=== PATIENT | female | born 1990 | race Two or more races ===

== ENCOUNTER 2024-03-01 11:32 | Emergency (ER) | payer MEDICAID, SELFPAY ==
[~2024-03-01] VITALS: Ht 152.4 cm; Wt 97.6 kg
[2024-03-01 11:38] VITALS: BP 172/98; TEMP 97.7; O2SAT 97
[2024-03-01] MEDS ORDERED: METH-1164 PO ×2 (11:49→14:19)
[2024-03-01] MEDS ORDERED: CYCL5TAB PO (11:49)
[2024-03-01] MEDS ORDERED: NIFE1TAB52 PO (11:49)
[2024-03-01] MEDS ORDERED: METF10004 PO (11:49)
[2024-03-01 13:38] LABS: BASO # 0.1 10^3/uL (0.0-0.2); BASO % 0.6 % (0.0-1.0); EOS # 0.2 10^3/uL (0.0-0.5); EOS % 2.1 % (0.0-3.0); HEMOGLOBIN 13.6 g/dl (12.0-15.5); LYMPH # 2.2 10^3/uL (1.5-5.0); LYMPH % 26.4 % (24.0-44.0); MEAN CORPUSCULAR HEMOGLOBIN 29.5 pg (27.0-33.0); MEAN CORPUSCULAR HGB CONC 32.4 g/dl (32.0-36.5); MEAN CORPUSCULAR VOLUME 91.1 fl (80.0-96.0); MONO # 0.4 10^3/uL (0.0-0.8); MONO % 4.2 % (2.0-8.0); NEUTROPHILS # 5.5 10^3/uL (1.5-8.5); NEUTROPHILS % 66.3 % (36.0-66.0); PLATELET COUNT, AUTOMATED 403 10^3/uL (150-450); RED BLOOD COUNT 4.61 10^6/uL (4.00-5.40); WHITE BLOOD COUNT 8.3 10^3/uL (4.0-10.0)
[2024-03-01 14:02] LABS: LIPASE 24 U/L (12-53)
[2024-03-01 14:06] LABS: ALBUMIN 3.6 G/DL (3.2-5.2); ALKALINE PHOSPHATASE 86 U/L (46-116); ALT/SGPT 19 U/L (7.0-40); AST/SGOT 14 U/L (<34); BILIRUBIN,DIRECT 0.1 MG/DL (<0.4); BILIRUBIN,TOTAL 0.4 MG/DL (0.3-1.2); BLOOD UREA NITROGEN < 5 MG/DL (9-23); CALCIUM LEVEL 9.1 MG/DL (8.5-10.1); CARBON DIOXIDE LEVEL 27 MMOL/L (20-31); CHLORIDE LEVEL 107 MMOL/L (98-107); CREATININE FOR GFR 0.57 MG/DL (0.55-1.30); GLOMERULAR FILTRATION RATE > 60.0 (>60); GLUCOSE, FASTING 104 MG/DL (60-100); HCG, SERUM QUANTITATIVE < 2.6 MIU/ML (<4.2); POTASSIUM SERUM 3.9 MMOL/L (3.5-5.1); SODIUM LEVEL 138 MMOL/L (136-145); TOTAL PROTEIN 6.7 G/DL (5.7-8.2)
== END 2024-03-01 14:30 | disposition home or self-care (01) ==
LOC: EDBD 11:32 → M ED 11:32
DX: M54.50 Low back pain, unspecified (principal); I10 Essential (primary) hypertension; N18.9 Chronic kidney disease, unspecified; Z88.8 Allergy status to other drugs, medicaments and biological substances; Z91.041 Radiographic dye allergy status; Z79.84 Long term (current) use of oral hypoglycemic drugs; Z79.899 Other long term (current) drug therapy

== ENCOUNTER 2024-03-30 15:13 | Emergency (ER) | payer MEDICAID, SELFPAY ==
[~2024-03-30] VITALS: Ht 152.4 cm; Wt 95.8 kg
[~2024-03-30 15:13] MED LIST: CYCL5TAB PO; METF10004 PO; METH-1164 PO; NIFE1TAB52 PO
[2024-03-30] MEDS ORDERED: ACET-683 PO (15:35)
[2024-03-30 16:12] LABS: URINE PREG TEST NEGATIVE (NEGATIVE)
[2024-03-30 17:58] VITALS: BP 108/67; TEMP 97; O2SAT 98
[2024-03-30] MEDS ORDERED: MUPI2OI TOP (19:25)
[2024-03-30] MEDS ORDERED: GUAIDM5UD PO (19:25)
[2024-03-30] MEDS ORDERED: CHLO1.4S7 PO (19:25)
== END 2024-03-30 19:36 | disposition home or self-care (01) ==
LOC: M ED 15:13
DX: J06.9 Acute upper respiratory infection, unspecified (principal); E11.9 Type 2 diabetes mellitus without complications; I10 Essential (primary) hypertension; Z86.73 Personal history of transient ischemic attack (TIA), and cerebral infarction without residual deficits; M54.9 Dorsalgia, unspecified; M32.9 Systemic lupus erythematosus, unspecified; F17.200 Nicotine dependence, unspecified, uncomplicated; Z79.899 Other long term (current) drug therapy; Z88.0 Allergy status to penicillin; Z88.6 Allergy status to analgesic agent; Z88.8 Allergy status to other drugs, medicaments and biological substances; Z91.041 Radiographic dye allergy status; Z91.013 Allergy to seafood; Z91.030 Bee allergy status; Z91.010 Allergy to peanuts

== ENCOUNTER 2024-04-06 00:14 | Emergency (ER) | payer MEDICAID ==
[~2024-04-06] VITALS: Ht 152.4 cm; Wt 95.0 kg
[~2024-04-06 00:14] MED LIST changes: +ACET-683 PO; +CHLO1.4S7 PO; +GUAIDM5UD PO; +MUPI2OI TOP
[2024-04-06 00:15] VITALS: BP 122/85; TEMP 98.5; O2SAT 97
== END 2024-04-06 02:01 | disposition left against medical advice (07) ==
LOC: M ED 00:14
DX: Z53.21 Procedure and treatment not carried out due to patient leaving prior to being seen by health care provider (principal)

== ENCOUNTER 2024-04-16 19:58 | Emergency (ER) | payer MEDICAID ==
[~2024-04-16] VITALS: Ht 157.5 cm; Wt 97.5 kg
[2024-04-16 20:00] VITALS: BP 135/83; TEMP 97.5; O2SAT 97
== END 2024-04-16 20:16 | disposition left against medical advice (07) ==
LOC: M ED 19:58
DX: Z53.21 Procedure and treatment not carried out due to patient leaving prior to being seen by health care provider (principal)

== ENCOUNTER 2024-04-17 23:03 | Emergency (ER) | payer MEDICAID, OTHER, SELFPAY ==
[~2024-04-17] VITALS: Ht 154.9 cm; Wt 97.6 kg
[2024-04-17 23:05] VITALS: BP 138/92; TEMP 97.8; O2SAT 97
[2024-04-18] MEDS ORDERED: DOXY-441 PO (19:52)
== END 2024-04-18 01:18 | disposition left against medical advice (07) ==
LOC: M ED 23:03
DX: Z53.21 Procedure and treatment not carried out due to patient leaving prior to being seen by health care provider (principal)

== ENCOUNTER 2024-04-18 18:14 | Emergency (ER) | payer MEDICAID, SELFPAY ==
[~2024-04-18] VITALS: Ht 152.4 cm; Wt 90.0 kg
[2024-04-18] MEDS ORDERED: DOXY-441 PO (19:52)
[2024-04-18] MEDS: DERMABOND TOPICAL SKIN ADHESIVE TOP ONE (19:56)
[2024-04-18] MEDS: DOXYCYCLINE HYCLATE 100MG TABLET PO ONE (19:57)
[2024-04-18 20:13] VITALS: BP 148/95; TEMP 97.9; O2SAT 96
== END 2024-04-18 21:05 | disposition home or self-care (01) ==
LOC: M ED 18:14
DX: F43.0 Acute stress reaction (principal); S61.213A Laceration without foreign body of left middle finger without damage to nail, initial encounter; E11.9 Type 2 diabetes mellitus without complications; I10 Essential (primary) hypertension; G40.909 Epilepsy, unspecified, not intractable, without status epilepticus; M54.50 Low back pain, unspecified; Z79.84 Long term (current) use of oral hypoglycemic drugs; Z88.0 Allergy status to penicillin; Z88.1 Allergy status to other antibiotic agents; Z88.4 Allergy status to anesthetic agent; Z88.6 Allergy status to analgesic agent; Z88.8 Allergy status to other drugs, medicaments and biological substances; Z91.040 Latex allergy status; Z91.030 Bee allergy status; Z91.041 Radiographic dye allergy status; Z91.013 Allergy to seafood; Z79.1 Long term (current) use of non-steroidal anti-inflammatories (NSAID); Z79.899 Other long term (current) drug therapy

== ENCOUNTER 2024-04-27 22:37 | Emergency (ER) | payer MEDICAID ==
[~2024-04-27] VITALS: Ht 154.9 cm; Wt 96.2 kg
[~2024-04-27 22:37] MED LIST changes: +DOXY-441 PO
[2024-04-27 22:50] VITALS: BP 137/71; TEMP 98; O2SAT 96
[2024-04-28] MEDS ORDERED: MUPI2OI TOP (04:38)
[2024-04-28] MEDS ORDERED: IPRA0.00 NEB (04:38)
[2024-04-28] MEDS ORDERED: VENTAER INH (04:38)
== END 2024-04-28 00:13 | disposition left against medical advice (07) ==
LOC: M ED 22:37
DX: Z53.21 Procedure and treatment not carried out due to patient leaving prior to being seen by health care provider (principal)

== ENCOUNTER 2024-04-28 00:35 | Emergency (ER) | payer MEDICAID ==
[~2024-04-28] VITALS: Ht 154.9 cm; Wt 93.2 kg
[2024-04-28] MEDS ORDERED: IPRA0.00 NEB (04:38)
[2024-04-28] MEDS ORDERED: VENTAER INH (04:38)
[2024-04-28] MEDS ORDERED: MUPI2OI TOP (04:38)
[2024-04-28 04:39] VITALS: BP 127/65; TEMP 97.2; O2SAT 98
== END 2024-04-28 04:52 | disposition home or self-care (01) ==
LOC: M ED 00:35
DX: J06.9 Acute upper respiratory infection, unspecified (principal); J45.901 Unspecified asthma with (acute) exacerbation; M54.9 Dorsalgia, unspecified; F17.200 Nicotine dependence, unspecified, uncomplicated; Z79.899 Other long term (current) drug therapy; Z88.0 Allergy status to penicillin; Z88.8 Allergy status to other drugs, medicaments and biological substances; Z88.4 Allergy status to anesthetic agent; Z91.041 Radiographic dye allergy status; Z91.030 Bee allergy status; Z91.013 Allergy to seafood; Z88.6 Allergy status to analgesic agent; Z91.010 Allergy to peanuts

== ENCOUNTER 2024-05-08 19:26 | Emergency (ER) | payer MEDICAID ==
[~2024-05-08] VITALS: Ht 154.9 cm; Wt 90.0 kg
[~2024-05-08 19:26] MED LIST changes: +IPRA0.00 NEB; +VENTAER INH
[2024-05-08 19:31] VITALS: BP 135/82; TEMP 97.3; O2SAT 99
[2024-05-08 20:36] LABS: URINE PREG TEST NEGATIVE (NEGATIVE)
== END 2024-05-08 23:00 | disposition left against medical advice (07) ==
LOC: M ED 19:26
DX: Z53.21 Procedure and treatment not carried out due to patient leaving prior to being seen by health care provider (principal)

== ENCOUNTER 2024-05-10 14:36 | Emergency (ER) | payer MEDICAID ==
[2024-05-10 14:57] VITALS: BP 134/78; TEMP 98
[2024-05-10 15:51] VITALS: O2SAT 97
== END 2024-05-10 16:37 | disposition left against medical advice (07) ==
LOC: EDBD 14:36 → M ED 14:36
DX: Z53.21 Procedure and treatment not carried out due to patient leaving prior to being seen by health care provider (principal)

== ENCOUNTER 2024-06-03 19:43 | Emergency (ER) | payer MEDICAID, OTHER, SELFPAY ==
[~2024-06-03] VITALS: Ht 154.9 cm; Wt 99.5 kg
[~2024-06-03 19:43] MED LIST changes: -CYCL5TAB PO; +CYCL5TAB4 PO
[2024-06-03 19:46] VITALS: TEMP 99
[2024-06-03 20:39] LABS: BASO % 0.3 % (0.0-1.0); EOS # 0.2 10^3/uL (0.0-0.5); EOS % 2.7 % (0.0-3.0); HEMATOCRIT 42.4 % (36.0-47.0); HEMOGLOBIN 13.6 g/dl (12.0-15.5); LYMPH # 2.7 10^3/uL (1.5-5.0); LYMPH % 29.6 % (24.0-44.0); MEAN CORPUSCULAR HEMOGLOBIN 29.2 pg (27.0-33.0); MEAN CORPUSCULAR HGB CONC 32.1 g/dl (32.0-36.5); MONO # 0.5 10^3/uL (0.0-0.8); MONO % 5.6 % (2.0-8.0); NEUTROPHILS # 5.6 10^3/uL (1.5-8.5); NEUTROPHILS % 61.4 % (36.0-66.0); PLATELET COUNT, AUTOMATED 453 10^3/uL (150-450); RED BLOOD COUNT 4.66 10^6/uL (4.00-5.40); WHITE BLOOD COUNT 9.1 10^3/uL (4.0-10.0)
[2024-06-03 21:01] LABS: LIPASE 32 U/L (12-53)
[2024-06-03 21:03] LABS: ALBUMIN 3.5 G/DL (3.2-5.2); ALKALINE PHOSPHATASE 84 U/L (35-104); ALT/SGPT 18 U/L (7.0-40); AST/SGOT 10 U/L (<34); BILIRUBIN,DIRECT < 0.1 MG/DL (<0.4); BILIRUBIN,TOTAL 0.2 MG/DL (0.3-1.2); BLOOD UREA NITROGEN 9 MG/DL (9-23); CALCIUM LEVEL 9.3 MG/DL (8.5-10.1); CARBON DIOXIDE LEVEL 26 MMOL/L (20-31); CHLORIDE LEVEL 106 MMOL/L (98-107); CREATININE FOR GFR 0.55 MG/DL (0.55-1.30); GLOMERULAR FILTRATION RATE > 60.0 (>60); GLUCOSE, FASTING 110 MG/DL (60-100); HCG, SERUM QUALITATIVE NEGATIVE (NEGATIVE); POTASSIUM SERUM 3.6 MMOL/L (3.5-5.1); SODIUM LEVEL 140 MMOL/L (136-145); TOTAL PROTEIN 6.8 G/DL (5.7-8.2)
[2024-06-03] MEDS: MORPHINE 2 MG/ML 1ML VIAL IV ONE (22:36)
[2024-06-03 23:18] LABS: Trichomonas vaginalis (AMP) NOT DETECTED (NEGATIVE)
[2024-06-03] MEDS: diphenhydrAMINE 50MG/ML VIAL IV STA (23:35)
[2024-06-03] MEDS: methylPREDNISolone 125MG 2ML VIAL IV ONE (23:35)
[2024-06-03 23:41] LABS: GC DNA AMPLIFICATION NEGATIVE (NEGATIVE)
[2024-06-04] MEDS: GASTROGRAFIN SOLUTION 30ML PO SCH (00:08)
[2024-06-04] MEDS: KETOROLAC 30 MG/ML 1ML VIAL IV ONE (00:18)
[2024-06-04 00:45] VITALS: O2SAT 97
[2024-06-04 01:01] VITALS: BP 153/79
== END 2024-06-04 01:24 | disposition left against medical advice (07) ==
LOC: M ED 19:43
DX: R10.9 Unspecified abdominal pain (principal); Z53.9 Procedure and treatment not carried out, unspecified reason; E11.9 Type 2 diabetes mellitus without complications; F17.200 Nicotine dependence, unspecified, uncomplicated; Z85.42 Personal history of malignant neoplasm of other parts of uterus; Z79.84 Long term (current) use of oral hypoglycemic drugs; Z79.899 Other long term (current) drug therapy; Z88.4 Allergy status to anesthetic agent; Z88.0 Allergy status to penicillin; Z88.8 Allergy status to other drugs, medicaments and biological substances; Z88.6 Allergy status to analgesic agent; Z88.5 Allergy status to narcotic agent; Z91.041 Radiographic dye allergy status; Z91.013 Allergy to seafood; Z91.030 Bee allergy status; Z91.010 Allergy to peanuts
CPT/HCPCS: 80048; 80076; 81001; 83690; 84703; 85025; 87210; 87661; 87810; 87850; 94760; 96374; 96375; 99284; J1200; J1885; J2919; Q9963

== ENCOUNTER 2024-06-06 08:06 | Emergency (ER) | payer MEDICAID, OTHER, SELFPAY ==
[~2024-06-06] VITALS: Ht 154.9 cm; Wt 100.4 kg
[2024-06-06 09:21] LABS: BASO % 0.3 % (0.0-1.0); EOS # 0.2 10^3/uL (0.0-0.5); EOS % 1.4 % (0.0-3.0); HEMATOCRIT 41.3 % (36.0-47.0); HEMOGLOBIN 13.1 g/dl (12.0-15.5); LYMPH # 4.5 10^3/uL (1.5-5.0); MEAN CORPUSCULAR HEMOGLOBIN 28.4 pg (27.0-33.0); MEAN CORPUSCULAR HGB CONC 31.7 g/dl (32.0-36.5); MEAN CORPUSCULAR VOLUME 89.4 fl (80.0-96.0); MONO % 8.4 % (2.0-8.0); NEUTROPHILS # 6.6 10^3/uL (1.5-8.5); NEUTROPHILS % 53.3 % (36.0-66.0); PLATELET COUNT, AUTOMATED 487 10^3/uL (150-450); RED BLOOD COUNT 4.62 10^6/uL (4.00-5.40); WHITE BLOOD COUNT 12.4 10^3/uL (4.0-10.0)
[2024-06-06 09:47] LABS: LIPASE 29 U/L (12-53)
[2024-06-06 09:51] LABS: ALBUMIN 3.6 G/DL (3.2-5.2); ALKALINE PHOSPHATASE 88 U/L (35-104); ALT/SGPT 22 U/L (7.0-40); AST/SGOT 9 U/L (<34); BILIRUBIN,DIRECT < 0.1 MG/DL (<0.4); BILIRUBIN,TOTAL 0.2 MG/DL (0.3-1.2); BLOOD UREA NITROGEN 16 MG/DL (9-23); CALCIUM LEVEL 9.5 MG/DL (8.5-10.1); CARBON DIOXIDE LEVEL 27 MMOL/L (20-31); CHLORIDE LEVEL 106 MMOL/L (98-107); CREATININE FOR GFR 0.64 MG/DL (0.55-1.30); GLOMERULAR FILTRATION RATE > 60.0 (>60); GLUCOSE, FASTING 93 MG/DL (60-100); POTASSIUM SERUM 3.8 MMOL/L (3.5-5.1); SODIUM LEVEL 140 MMOL/L (136-145); TOTAL PROTEIN 7.1 G/DL (5.7-8.2)
[2024-06-06 10:17] LABS: FREE T4 0.74 NG/DL (0.89-1.76); THYROID STIMULATING HORMONE 12.613 uIU/ML (0.55-4.78)
[2024-06-06 10:28] LABS: HCG, SERUM QUALITATIVE NEGATIVE (NEGATIVE)
[2024-06-06 10:50] LABS: PROCALCITONIN <0.04 ng/ml
[2024-06-06] MEDS: methylPREDNISolone 125MG 2ML VIAL IV ONE (10:51)
[2024-06-06] MEDS: NS 500 ML IV ONE ×2 (10:51→12:00)
[2024-06-06] MEDS: diphenhydrAMINE 50MG/ML VIAL IV STA (10:51)
[2024-06-06] MEDS: FAMOTIDINE IV BAG 20 MG in IV 1 EA IV ONE (10:51)
[2024-06-06] MEDS: MORPHINE 2 MG/ML 1ML VIAL IV ONE ×2 (11:07→14:28)
[2024-06-06 11:38] LABS: Trichomonas vaginalis (AMP) NOT DETECTED (NEGATIVE)
[2024-06-06 12:01] LABS: GC DNA AMPLIFICATION NEGATIVE (NEGATIVE)
[2024-06-06] MEDS: levETIRAcetam INJection 1,000 MG in D5W 100 ML IV ONE (14:00)
[2024-06-06] MEDS: levETIRAcetam 250MG TABLET (KEPPRA) PO ONE (14:28)
[2024-06-06 17:35] VITALS: BP 165/81; TEMP 98.1; O2SAT 97
== END 2024-06-06 17:49 | disposition home or self-care (01) ==
LOC: M ED 08:06
DX: R11.10 Vomiting, unspecified (principal); R19.7 Diarrhea, unspecified; K59.00 Constipation, unspecified; K44.9 Diaphragmatic hernia without obstruction or gangrene; R16.0 Hepatomegaly, not elsewhere classified; K76.0 Fatty (change of) liver, not elsewhere classified; Z85.42 Personal history of malignant neoplasm of other parts of uterus; Z86.718 Personal history of other venous thrombosis and embolism; E11.9 Type 2 diabetes mellitus without complications; I10 Essential (primary) hypertension; Z86.73 Personal history of transient ischemic attack (TIA), and cerebral infarction without residual deficits; F17.200 Nicotine dependence, unspecified, uncomplicated; Z79.84 Long term (current) use of oral hypoglycemic drugs; Z79.899 Other long term (current) drug therapy; Z88.4 Allergy status to anesthetic agent; Z91.041 Radiographic dye allergy status; Z88.0 Allergy status to penicillin; Z91.013 Allergy to seafood; Z91.030 Bee allergy status; Z88.8 Allergy status to other drugs, medicaments and biological substances; Z88.6 Allergy status to analgesic agent; Z91.010 Allergy to peanuts
CPT/HCPCS: 74176; 76830; 76856; 80048; 80076; 81001; 83605; 83690; 84145; 84439; 84443; 84703; 85025; 85730; 87040; 87210; 87661; 87810; 87850; 93005; 93971; 96361; 96365; 96366; 96367; 96375; 96376; 99285; J1200; J1953; J2919; S0028